=== PATIENT | female | born 1985 | race Caucasian/White ===

== ENCOUNTER 2021-10-27 06:50 | Inpatient (IN) | payer BC ==
[~2021-10-27 06:50] MED LIST: Bupivacaine 0.25% 10 ML SDV ONE
[2021-10-27] MEDS ORDERED: Sodium Chloride 0.9% 10 ML Syringe FLUSH PRN (07:06)
[2021-10-27] MEDS ORDERED: Ondansetron 4 MG/2 ML SDV IVPUSH PRN (07:06)
[2021-10-27] MEDS ORDERED: Nalbuphine HCl 10 MG/ 1ML Amp IVPUSH PRN (07:06)
[2021-10-27] MEDS ORDERED: Oxytocin/Lactated Ringers 10 UNIT/1,000 ML BAG IV SCH ×2 (07:15)
[2021-10-27] MEDS: Lactated Ringers 1,000 ML IV SCH ×2 (08:48→12:53)
[2021-10-27] MEDS ORDERED: fentaNYL 100 MCG/2 ML SDV EPIDUR PRN (12:25)
[2021-10-27] MEDS ORDERED: ePHEDrine 50 MG/ML SDV IVPUSH PRN (12:25)
[2021-10-27] MEDS ORDERED: diphenhydrAMINE 50 MG/ML SDV IVPUSH PRN (12:25)
[2021-10-27] MEDS: Bupivacaine/fentaNYL/NS 100 ML Bag EPIDUR PRN ×2 (12:43→20:32)
[2021-10-27] MEDS ORDERED: Oxytocin/Lactated Ringers 20 UNIT/1,000 ML BAG IV SCH (17:15)
[2021-10-27] MEDS: Sodium Chloride 0.9% 10 ML Syringe FLUSH SCH ×2 (20:35→22:49)
[2021-10-27] MEDS ORDERED: Acetaminophen 325 MG Tab PO PRN (22:28)
[2021-10-27] MEDS ORDERED: Benzocaine/Menthol 20%-0.5% Spray 78 GM Cannister TOP PRN (22:28)
[2021-10-27] MEDS ORDERED: Docusate Sodium 100 MG Cap PO PRN (22:28)
[2021-10-27] MEDS ORDERED: Witch Hazel Medicated Pads 40/Jar TOP PRN (22:28)
[2021-10-28] MEDS: Ibuprofen 600 MG Tab PO PRN ×2 (07:11→15:54)
== END 2021-10-29 10:07 | disposition home or self-care (01) | DRG 560 ==
LOC: JD.OB 06:50 → OBSVTOIN 21:02 → JD.OB 21:03
PROVIDERS: ADMIT Obstetrics & Gynecology; ATTEND Obstetrics & Gynecology
PROC: 10E0XZZ Delivery of Products of Conception, External Approach (ICD-10-PCS; principal; 2021-10-27)
PROC: 10907ZC Drainage of Amniotic Fluid, Therapeutic from Products of Conception, Via Natural or Artificial Opening (ICD-10-PCS; 2021-10-27)
PROC: 3E0R3BZ Introduction of Anesthetic Agent into Spinal Canal, Percutaneous Approach (ICD-10-PCS; 2021-10-27)
PROC: 00HU33Z Insertion of Infusion Device into Spinal Canal, Percutaneous Approach (ICD-10-PCS; 2021-10-27)
DX: O98.12 Syphilis complicating childbirth (principal); Z3A.39 39 weeks gestation of pregnancy; Z37.0 Single live birth; A53.9 Syphilis, unspecified
CPT/HCPCS: 01967; 36415; 51702; 59025; 59409; 85027; 86592; 86850; 86900; 86901; A9270-GY; J2590; J3010; J3490; J7120